=== PATIENT | female | born 1965 ===

== ENCOUNTER 2017-01-29 10:37 | Emergency (ER) | payer MEDICAID, OTHER ==
[2017-01-29 10:37] VITALS: BMI 29.2
[2017-01-29 10:47] VITALS: BP 129/88; PULSE 83; RESP 18; TEMP 98.7; O2SAT 95
--- NOTE | 2017-01-29 11:51 | RAD ---
PROCEDURE: Right Thumb radiographs. HISTORY: pain and swelling COMPARISON: None. TECHNIQUE: AP radiograph of the right hand, as well as spot oblique and lateral images of thumb were obtained. FINDINGS: RIGHT THUMB: Normal right thumb, without fracture or focal lesion. Remainder of the right hand (as seen on the AP view) grossly unremarkable. JOINTS: Normal. SOFT TISSUES: Normal. OTHER FINDINGS: None. IMPRESSION: Normal right thumb radiographs.
--- NOTE | 2017-01-29 11:57 | C.PDOC ---
History Of Present Illness 51 y/o female presents to the ED with complaints of right thumb pain x2 days. Pt noticed redness and swelling yesterday, worse today. Pain is throbbing. Pt denies injury, fever, weakness, numbness or any other complaints. Pt reports history of arthritis, but never been told has gout. Time Seen by Provider: 01/29/17 11:06 Chief Complaint (Nursing): Upper Extremity Problem/Injury History Per: Patient History/Exam Limitations: no limitations Onset/Duration Of Symptoms: Days Current Symptoms Are (Timing): Worse Quality: Other (throbbing) Severity: Moderate Recent travel outside of the [place]: No Past Medical History Reviewed: Historical Data, Nursing Documentation, Vital Signs Vital Signs: Last Vital Signs Temp 98.7 F 01/29/17 10:46 Pulse 83 01/29/17 10:46 Resp 18 01/29/17 10:46 BP 129/88 01/29/17 10:46 Pulse Ox 95 01/29/17 12:08 - Medical History PMH: Asthma Family History: States: Unknown Family Hx - Social History Hx Tobacco Use: No Hx Alcohol Use: No Hx Substance Use: No - Immunization History Hx Tetanus Toxoid Vaccination: Yes (2015) Hx Influenza Vaccination: Yes (2016) Hx Pneumococcal Vaccination: No Review Of Systems Constitutional: Negative for: Fever, Chills Musculoskeletal: Positive for: Other (right thumb pain, redness and swelling) Neurological: Negative for: Weakness, Numbness Physical Exam - Physical Exam Appears: Non-toxic, No Acute Distress Skin: Warm, Dry Head: Atraumatic, Normacephalic Eye(s): bilateral: Normal Inspection Neck: Normal ROM Chest: Symmetrical Extremity: Normal ROM, Capillary Refill (<2 seconds), No Deformity, Other ( swelling, tenderness, erythema and tactile warmth to right 1st digit) Pulses: Right Radial: Normal Neurological/Psych: Oriented x3, Normal Speech, Normal Motor, Normal Sensation Gait: Steady ED Course And Treatment O2 Sat by Pulse Oximetry: 95 (room air) Pulse Ox Interpretation: Normal Medical Decision Making Medical Decision Making: Impression: Right thumb with erythema, swelling, tactile warmth. Thumb is tender to touch, skin intact. Based on history and exam, clinically appears to be gout, will order Xray to rule out fracture Plan: * toradol * prednisone * XR right hand Progress: XRay reviewed showing normal thumb. Upon reevaluation, patient reports pain is improving. Patient advised to take NSAID and follow up with PCP. Instruct on dietary restrictions for uric acid Disposition Counseled Patient/Family Regarding: Diagnosis, Need For Followup, Rx Given - Disposition Referrals: Christian Brown MD [Staff Provider] - Disposition: HOME/ ROUTINE Disposition Time: 12:03 Condition: STABLE Additional Instructions: George diagnstico de hoy es Gout Chrisney Prednisone diariamente para la inflamacin Chrisney Advil, Aleve o Ibuprofen para el dolor cada 8 horas Siga con george mdico para idris evaluacin ms detallada Prescriptions: predniSONE [predniSONE Tab] 2 tab PO DAILY #10 tab Instructions: Gout (ED) Print Language: TRISTANIAN - POA Present On Arrival: None - Clinical Impression Clinical Impression: Gout - PA / SAMPLER FIRST / Resident Statement MD/DO has reviewed & agrees with the documentation as recorded. - Scribe Statement The provider has reviewed the documentation as recorded by the Jose Walsh All medical record entries made by the Jose were at my direction and personally dictated by me. I have reviewed the chart and agree that the record accurately reflects my personal performance of the history, physical exam, medical decision making, and the department course for this patient. I have also personally directed, reviewed, and agree with the discharge instructions and disposition.
== END 2017-01-29 12:28 | disposition home or self-care (01) ==
LOC: C.ER 10:37
DX: M10.9 Gout, unspecified (principal)
CPT/HCPCS: 73140; 96372; 99284; J1885

== ENCOUNTER 2017-02-04 01:59 | Emergency (ER) | payer MEDICAID ==
[2017-02-04 01:59] VITALS: BMI 29.2
--- NOTE | 2017-02-04 02:22 | C.PDOC ---
History Of Present Illness Patient presents to the ER with a complaint of a sharp, stabbing left flank pain radiating to the left leg that began approximately at 21:00. Patient states she took prednisone at home but vomited afterwards. Patient appears; denies fever, chills, dysuria, or hematuria. Time Seen by Provider: 02/04/17 02:21 Chief Complaint (Nursing): Lower Extremity Problem/Injury History Per: Patient History/Exam Limitations: no limitations Onset/Duration Of Symptoms: Hrs Current Symptoms Are (Timing): Still Present Severity: Moderate Pain Scale Rating Of: 4 Recent travel outside of the [place] States: No Past Medical History Reviewed: Historical Data, Nursing Documentation, Vital Signs Vital Signs: Last Vital Signs Temp 98.9 F 02/04/17 02:13 Pulse 88 02/04/17 02:13 Resp 18 02/04/17 02:13 BP 145/83 02/04/17 02:13 Pulse Ox 99 02/04/17 02:56 - Medical History PMH: Asthma Surgical History: No Surg Hx Family History: States: No Known Family Hx - Social History Hx Tobacco Use: No Hx Alcohol Use: No Hx Substance Use: No - Immunization History Hx Tetanus Toxoid Vaccination: Yes Hx Influenza Vaccination: Yes Hx Pneumococcal Vaccination: No Review Of Systems Constitutional: Negative for: Fever, Chills Genitourinary: Negative for: Dysuria, Hematuria Musculoskeletal: Positive for: Leg Pain (Radiating from left flank), Other ( Left Flank Pain) Psych: Positive for: Anxiety Physical Exam - Physical Exam Appears: Non-toxic Skin: Warm, Dry Head: Normacephalic Eye(s): bilateral: Normal Inspection Oral Mucosa: Moist Neck: Supple Chest: Symmetrical, No Tenderness Cardiovascular: Rhythm Regular, No Murmur Respiratory: No Rales, No Rhonchi, No Wheezing Gastrointestinal/Abdominal: Soft, Tenderness (LLQ), No Distention, No Guarding, No Rebound Back: Normal Inspection, No CVA Tenderness, Muscle Spasm Extremity: Normal ROM (x4), No Tenderness Extremity: Bilateral: Atraumatic, Normal Color And Temperature, Normal ROM Pulses: Left Femoral: Normal, Right Femoral: Normal, Left Dorsalis Pedis: Normal , Right Dorsalis Pedis: Normal Neurological/Psych: Oriented x3 Gait: Steady ED Course And Treatment - Laboratory Results Result Diagrams: 02/04/17 02:37 02/04/17 02:37 O2 Sat by Pulse Oximetry: 99 (Room air) Pulse Ox Interpretation: Normal Progress Note: Blood work and urinalysis ordered. Pepcid, toradol, morphine, zofran, and IV fluids administered. Reevaluation Time: 04:52 Reassessment Condition: Improved Medical Decision Making Medical Decision Making: Upon provider reevaluation patient is feeling better, is medically stable, and requires no further treatment in the ED at this time. Patient will be discharged home with Rx for tramadol and zofran . Counseling was provided and all questions were answered regarding diagnosis and need for follow up with dr brown. There is agreement to discharge plan. Return if symptoms persist or worsen. Disposition Counseled Patient/Family Regarding: Studies Performed, Diagnosis, Need For Followup, Rx Given - Disposition Referrals: Christian Brown MD [Staff Provider] - Disposition: HOME/ ROUTINE Disposition Time: 02:21 Condition: FAIR Additional Instructions: Please return if symptoms recur Prescriptions: Ondansetron ODT [Zofran ODT] 1 odt PO BID PRN #12 odt PRN Reason: Nausea/Vomiting traMADol [Ultram] 50 mg PO TID PRN #15 tab PRN Reason: Pain, Severe (8-10) Instructions: Abdominal Pain (ED), Leg Pain (ED) Print Language: SLOVAK - Clinical Impression Clinical Impression: Abdominal pain, Leg pain - Scribe Statement The provider has reviewed the documentation as recorded by the Scribsvetlana Jimenez All medical record entries made by the Scribe were at my direction and personally dictated by me. I have reviewed the chart and agree that the record accurately reflects my personal performance of the history, physical exam, medical decision making, and the department course for this patient. I have also personally directed, reviewed, and agree with the discharge instructions and disposition.
[2017-02-04] MEDS ORDERED: Sodium Chloride 0.9% 1,000 ML IV ONE (02:24)
[2017-02-04] MEDS ORDERED: Sodium Chloride 0.9% 1,000 ML ONE (02:37)
[2017-02-04 02:38] LABS: BASO % 0.3 % (0.0-2.0); EOS % 0.2 % (0.0-4.0); HEMOGLOBIN 12.3 g/dL (11.0-16.0); LYMPH # 1.6 K/uL (1.0-4.3); LYMPH % 11.7 % (20.0-40.0); MEAN CELL VOLUME 75.8 fL (81.0-99.0); MEAN CORPUSCULAR HEMOGLOBIN 25.5 pg (27.0-31.0); MEAN CORPUSCULAR HGB CONC 33.7 g/dL (33.0-37.0); MEAN PLATELET VOLUME 8.6 fL (7.2-11.7); MONO # 0.6 K/uL (0.0-0.8); MONO % 4.3 % (0.0-10.0); NEUT # 11.6 K/uL (1.8-7.0); NEUT % 83.5 % (50.0-75.0); RBC 4.84 Mil/uL (3.80-5.20); RED CELL DISTRIBUTION WIDTH 15.8 % (11.5-14.5); WHITE BLOOD COUNT 13.9 K/uL (4.8-10.8)
[2017-02-04 02:52] LABS: PROTHROMBIN TIME 11.4 SECONDS (9.7-12.2)
[2017-02-04 03:04] LABS: GFR AFRICAN-AMERICAN > 60; GFR NON-AFRICAN AMERICAN > 60
[2017-02-04 03:05] LABS: ALB/GLOB RATIO 1.3 (1.0-2.1); ALT/SGPT 28 U/L (9-52); AST/SGOT 15 U/L (14-36); BLOOD UREA NITROGEN 20 mg/dL (7-17); CALCIUM 8.9 mg/dl (8.6-10.4); LIPASE 24 U/L (23-300)
[2017-02-04] MEDS ORDERED: HYDROmorphone 1 mg/ml ISec IVP STA (03:58)
[2017-02-04] MEDS ORDERED: HYDROmorphone 1 mg/ml ISec ONE (04:18)
--- NOTE | 2017-02-04 04:22 | CT ---
EXAM: CT Abdomen and Pelvis Without Intravenous Contrast CLINICAL HISTORY: 51 years old, female; Pain; Abdominal pain; Flank; Left; Prior surgery; Surgery date: 6+ months; Surgery type: ; Additional info: Left flank pain TECHNIQUE: Axial computed tomography images of the abdomen and pelvis without intravenous contrast. This CT exam was performed using one or more of the following dose reduction techniques: automated exposure control, adjustment of the mA and/or kV according to patient size, and/or use of iterative reconstruction technique. Coronal and sagittal reformatted images were created and reviewed. EXAM DATE/TIME: 02/04/2017 3:12 AM COMPARISON: No relevant prior studies available. FINDINGS: There is a rounded 2.5 cm area of low attenuation in the right hepatic lobe on image 35 series 3 incompletely characterized on noncontrast study. Further evaluation with ultrasound or CT with contrast is recommended (could be done nonemergent basis). The gallbladder, spleen, and pancreas appear grossly normal on this non-contrast study. No perinephric stranding. No hydronephrosis. No obstructing calculi. Scattered colonic diverticuli are noted. A normal appendix is identified coronal images 39 through 46. Hyperdensity along uterine fundus that could be either calcification versus clip. IMPRESSION: No acute findings. Low-attenuation right hepatic lesion for which followup is recommended.
[2017-02-04 05:07] VITALS: BP 150/84; PULSE 66; RESP 16; TEMP 98.2; O2SAT 98
== END 2017-02-04 05:32 | disposition home or self-care (01) ==
LOC: C.ER 01:59
DX: R10.32 Left lower quadrant pain (principal); M79.605 Pain in left leg
CPT/HCPCS: 74176; 80053; 83690; 85025; 85610; 85730; 96361; 96374; 96375; 99285; J1170; J1885; J2270; J2405; J7040

== ENCOUNTER 2018-07-02 12:20 | Emergency (ER) | payer MEDICAID ==
[2018-07-02 12:21] VITALS: BMI 27.4
[2018-07-02 12:33] VITALS: TEMP 98
--- NOTE | 2018-07-02 13:18 | C.PDOC ---
History Of Present Illness 52 year old female with a history of lupus, rheumatoid arthritis, and unknown "headaches" presents to the ED for frontal headache associated with nausea and dizziness for 3-4 days. The patient describes the headache as throbbing and notes the pain radiates to the back of the neck. She states she does not typically experience dizziness with her headaches. Denies fever, chills, cough, nausea, vomiting, vision changes, numbness, weakness, and any other associated symptoms. Time Seen by Provider: 07/02/18 12:42 Chief Complaint (Nursing): Dizziness/Lightheaded History Per: Patient History/Exam Limitations: no limitations Onset/Duration Of Symptoms: Days Current Symptoms Are (Timing): Still Present Recent travel outside of the [place]: No Past Medical History Reviewed: Historical Data, Nursing Documentation, Vital Signs Vital Signs: Last Vital Signs Temp 98 F 07/02/18 12:29 Pulse 70 07/02/18 12:29 Resp 18 07/02/18 12:29 BP 122/84 07/02/18 12:29 Pulse Ox 100 07/02/18 12:29 - Medical History PMH: Arthritis, Asthma, Hypercholesterolemia, Rheumatoid Arthritis Denies: Chronic Kidney Disease Family History: States: Unknown Family Hx, CAD (Brother) - Social History Hx Tobacco Use: No Hx Alcohol Use: No Hx Substance Use: No - Immunization History Hx Tetanus Toxoid Vaccination: No Hx Influenza Vaccination: No Hx Pneumococcal Vaccination: No Review Of Systems Constitutional: Negative for: Fever, Chills Respiratory: Negative for: Cough Gastrointestinal: Positive for: Nausea. Negative for: Vomiting Neurological: Positive for: Headache (frontal.), Dizziness. Negative for: Weakness, Numbness Physical Exam - Physical Exam Appears: Non-toxic, No Acute Distress, Chronically Ill Skin: Warm, Dry, No Rash Head: Atraumatic, Normacephalic Eye(s): bilateral: Normal Inspection Ear(s): Bilateral: Normal Oral Mucosa: Moist Throat: No Erythema, No Exudate Neck: Normal ROM, Supple Chest: Symmetrical, No Deformity Cardiovascular: Rhythm Regular, No Friction Rub, No Murmur Respiratory: Normal Breath Sounds, No Rales, No Rhonchi, No Wheezing Gastrointestinal/Abdominal: Normal Exam, Soft, No Tenderness Back: Normal Inspection, No CVA Tenderness Extremity: Normal ROM (x4), No Swelling Neurological/Psych: Oriented x3, Normal Speech, Normal Cognition, Normal Motor, Normal Sensation, Normal Reflexes Gait: Steady ED Course And Treatment - Laboratory Results Result Diagrams: 07/02/18 14:58 07/02/18 14:58 O2 Sat by Pulse Oximetry: 100 (RA) Pulse Ox Interpretation: Normal - CT Scan/US CT Head Other Rad Studies (CT/US): Read By Radiologist CT/US Interpretation: FINDINGS: HEMORRHAGE: No intracranial hemorrhage. BRAIN: No mass effect or edema. The castellon-white matter differentiation appears intact. Please note that MRI with diffusion imaging is more sensitive in the detection of acute ischemic event. VENTRICLES: No hydrocephalus. CALVARIUM: Unremarkable. PARANASAL SINUSES: Unremarkable as visualized. No significant inflammatory changes. MASTOID AIR CELLS: Unremarkable as visualized. No inflammatory changes. OTHER FINDINGS: None. IMPRESSION: No acute intracranial pathology identified. Medical Decision Making Medical Decision Making: Plan: --CT Head w/o contrast. --Blood sent. --HCG Urine. --Urinalysis. --Benadryl. --Reglan. On re-exam, the patient report improvement of symptoms. Lungs are CTA, heart is RRR, abdomen is soft, non-tender and tolerating PO well. Ambulatory in the ED with steady gait. Follow up with the medical doctor within 1-2 days. Return if worsened. Disposition - Disposition Referrals: Christian Brown MD [Staff Provider] - Disposition: HOME/ ROUTINE Disposition Time: 16:26 Condition: STABLE Additional Instructions: Follow up with the medical doctor within 1-2 days. Return if worsened. Prescriptions: Meclizine HCl 25 mg PO TID PRN #25 tablet PRN Reason: Dizziness Instructions: Vertigo (a Type of Dizziness) (DC) Forms: [employer] (Telugu) Print Language: ANGUILLAN - Clinical Impression Clinical Impression: Vertigo - PA / HUMAN RELATIONS TEACHER / Resident Statement MD/DO has reviewed & agrees with the documentation as recorded. - Scribe Statement The provider has reviewed the documentation as recorded by the Scribe (Keysha Benavides) All medical record entries made by the Scribe were at my direction and personally dictated by me. I have reviewed the chart and agree that the record accurately reflects my personal performance of the history, physical exam, medi celia decision making, and the department course for this patient. I have also personally directed, reviewed, and agree with the discharge instructions and disposition.
[2018-07-02] MEDS ORDERED: DiphenhydrAMINE 50 mg/ml Inj IVP STA (13:28)
[2018-07-02] MEDS ORDERED: Sodium Chloride 0.9% 500 ML IV ONE (13:29)
[2018-07-02] MEDS ORDERED: DiphenhydrAMINE 50 mg/ml Inj ONE (14:43)
[2018-07-02] MEDS ORDERED: Sodium Chloride 0.9% 1,000 ML ONE (14:43)
--- NOTE | 2018-07-02 14:55 | CT ---
Date of service: 07/02/2018 PROCEDURE: CT HEAD WITHOUT CONTRAST. HISTORY: headache, dizziness, r/o bleed COMPARISON: None available TECHNIQUE: Axial computed tomography images were obtained through the head/brain without intravenous contrast. Radiation dose: Total exam DLP = 897.49 mGy-cm. This CT exam was performed using one or more of the following dose reduction techniques: Automated exposure control, adjustment of the mA and/or kV according to patient size, and/or use of iterative reconstruction technique. FINDINGS: HEMORRHAGE: No intracranial hemorrhage. BRAIN: No mass effect or edema. The castellon-white matter differentiation appears intact. Please note that MRI with diffusion imaging is more sensitive in the detection of acute ischemic event. VENTRICLES: No hydrocephalus. CALVARIUM: Unremarkable. PARANASAL SINUSES: Unremarkable as visualized. No significant inflammatory changes. MASTOID AIR CELLS: Unremarkable as visualized. No inflammatory changes. OTHER FINDINGS: None. IMPRESSION: No acute intracranial pathology identified.
[2018-07-02 15:03] LABS: HCG,QUALITATIVE URINE NEGATIVE (NEGATIVE)
[2018-07-02 15:05] LABS: BASO # 0.1 K/uL (0.0-0.2); BASO % 1.8 % (0.0-2.0); EOS # 0.2 K/uL (0.0-0.7); EOS % 2.8 % (0.0-4.0); LYMPH # 1.8 K/uL (1.0-4.3); LYMPH % 31.8 % (20.0-40.0); MEAN CORPUSCULAR HEMOGLOBIN 26.1 pg (27.0-31.0); MEAN CORPUSCULAR HGB CONC 33.9 g/dL (33.0-37.0); MEAN PLATELET VOLUME 8.4 fL (7.2-11.7); MONO # 0.3 K/uL (0.0-0.8); NEUT # 3.3 K/uL (1.8-7.0); NEUT % 58.6 % (50.0-75.0); RBC 4.6 Mil/uL (3.80-5.20); RED CELL DISTRIBUTION WIDTH 16.7 % (11.5-14.5); WHITE BLOOD COUNT 5.6 K/uL (4.8-10.8)
[2018-07-02 15:05] LABS: SQUAMOUS EPITHIAL < 1 /hpf (0-5); URINE BILIRUBIN NEGATIVE (NEGATIVE); URINE BLOOD NEGATIVE (NEGATIVE); URINE CLARITY Clear (Clear); URINE COLOR Yellow (YELLOW); URINE GLUCOSE (UA) NORMAL (Normal); URINE LEUKOCYTE ESTERASE NEG Leu/uL (Negative); URINE PROTEIN NEGATIVE (NEGATIVE); URINE UROBILINOGEN NORMAL mg/dL (0.2-1.0)
[2018-07-02 15:18] LABS: ALB/GLOB RATIO 1.5 (1.0-2.1); ALBUMIN 4.2 g/dL (3.5-5.0); ALT/SGPT 24 U/L (9-52); AST/SGOT 20 U/L (14-36); BLOOD UREA NITROGEN 13 mg/dL (7-17); GFR NON-AFRICAN AMERICAN > 60
[2018-07-02 16:50] VITALS: BP 111/71; PULSE 77; RESP 20; O2SAT 98
== END 2018-07-02 17:08 | disposition home or self-care (01) ==
LOC: C.ER 12:20
DX: R42 Dizziness and giddiness (principal); J45.909 Unspecified asthma, uncomplicated; E78.00 Pure hypercholesterolemia, unspecified; M06.9 Rheumatoid arthritis, unspecified; M32.9 Systemic lupus erythematosus, unspecified
CPT/HCPCS: 70450; 80053; 81001; 84703; 85025; 96361; 96365; 96375; 99285; J1200; J2765; J7040

== ENCOUNTER 2018-11-04 16:06 | Emergency (ER) | payer MEDICAID ==
[2018-11-04 16:06] VITALS: BMI 27.4
[2018-11-04] MEDS ORDERED: Sodium Chloride 0.9% 500 ML IV STA (17:04)
[2018-11-04 17:37] LABS: BASO # 0.1 K/uL (0.0-0.2); BASO % 0.9 % (0.0-2.0); EOS # 0.2 K/uL (0.0-0.7); EOS % 3.3 % (0.0-4.0); HEMOGLOBIN 12.3 g/dL (11.0-16.0); LYMPH # 1.8 K/uL (1.0-4.3); LYMPH % 24.4 % (20.0-40.0); MEAN CORPUSCULAR HEMOGLOBIN 26.8 pg (27.0-31.0); MEAN CORPUSCULAR HGB CONC 33.5 g/dL (33.0-37.0); MEAN PLATELET VOLUME 8.3 fL (7.2-11.7); MONO # 0.4 K/uL (0.0-0.8); MONO % 5.7 % (0.0-10.0); NEUT # 4.9 K/uL (1.8-7.0); NEUT % 65.7 % (50.0-75.0); NRBC % 0.1 % (0.0-2.0); RBC 4.61 Mil/uL (3.80-5.20); RED CELL DISTRIBUTION WIDTH 16.5 % (11.5-14.5); WHITE BLOOD COUNT 7.5 K/uL (4.8-10.8)
[2018-11-04 17:41] LABS: MEAN CELL VOLUME 79.8 fL (81.0-99.0)
[2018-11-04 17:50] LABS: INR 1.1; PROTHROMBIN TIME 11.9 SECONDS (9.7-12.2)
[2018-11-04 17:51] LABS: URINE BACTERIA RARE (<OCC); URINE BILIRUBIN NEGATIVE (NEGATIVE); URINE BLOOD NEGATIVE (NEGATIVE); URINE CLARITY Clear (Clear); URINE COLOR Straw (YELLOW); URINE GLUCOSE (UA) NORMAL (Normal); URINE LEUKOCYTE ESTERASE NEG Leu/uL (Negative); URINE PROTEIN NEGATIVE (NEGATIVE); URINE UROBILINOGEN NORMAL mg/dL (0.2-1.0)
--- NOTE | 2018-11-04 17:57 | RAD ---
Date of service: 11/04/2018 HISTORY: pain, cough COMPARISON: 05/03/2016 TECHNIQUE: Chest PA and lateral views FINDINGS: LUNGS: No active pulmonary disease. PLEURA: No significant pleural effusion identified. No pneumothorax apparent. CARDIOVASCULAR: No aortic atherosclerotic calcification present. Normal cardiac size. No pulmonary vascular congestion. OSSEOUS STRUCTURES: No significant abnormalities. VISUALIZED UPPER ABDOMEN: Normal. OTHER FINDINGS: None. IMPRESSION: No active disease. No significant interval change compared to the prior examination(s).
[2018-11-04] MEDS ORDERED: Albuterol-Ipratrop 3 mg / 0.5 (3 ml) UD IH STA (18:09)
[2018-11-04] MEDS ORDERED: Albuterol 0.083% Inhal Sol (2.5 mg/3 mL) UD INH STA (18:09)
[2018-11-04] MEDS ORDERED: Albuterol-Ipratrop 3 mg / 0.5 (3 ml) UD ONE (18:13)
[2018-11-04] MEDS ORDERED: Albuterol 0.083% Inhal Sol (2.5 mg/3 mL) UD ONE (18:22)
[2018-11-04 19:10] LABS: ALB/GLOB RATIO 1.6 (1.0-2.1); ALBUMIN 4.4 g/dL (3.5-5.0); ALT/SGPT 9 U/L (9-52); AST/SGOT 34 U/L (14-36); BLOOD UREA NITROGEN 15 mg/dL (7-17); GFR NON-AFRICAN AMERICAN > 60
[2018-11-04 19:30] LABS: CK-MB < 0.22 ng/mL (0.0-3.38)
--- NOTE | 2018-11-04 19:56 | C.PDOC ---
History Of Present Illness 53 year old female presents to ED with complaint of productive cough with yellow sputum for the past 2 days. Patient states that she also lost her voice, has generalized body aches, and a headache. Patient also complains of left sided chest pain that radiates to her left scapula. Patient denies that the pain is related to her cough and deep breathes. Patient denies SOB, palpitations, fever, runny nose, sore throat, and nasal congestion. <Anna Roy - Last Filed: 11/04/18 23:08> History Per: Patient History/Exam Limitations: no limitations Onset/Duration Of Symptoms: Days (2) Current Symptoms Are (Timing): Still Present Location Of Pain: Diffuse Myalgias, Headache Associated Symptoms: Cough, Sputum. denies: Fever, Chills, Sore Throat, Sinus Drainage, Nasal Congestion <Anna Roy - Last Filed: 11/04/18 23:08> <Devi Santoro - Last Filed: 11/05/18 01:45> Time Seen by Provider: 11/04/18 16:53 Chief Complaint (Nursing): Cough, Cold, Congestion Past Medical History Reviewed: Historical Data, Nursing Documentation, Vital Signs Vital Signs: Last Vital Signs Temp 98.1 F 11/04/18 16:45 Pulse 84 11/04/18 16:45 Resp 14 11/04/18 16:45 BP 133/86 11/04/18 16:45 Pulse Ox 100 11/04/18 16:45 - Medical History PMH: Arthritis, Asthma, Hypercholesterolemia, Rheumatoid Arthritis Denies: Chronic Kidney Disease Surgical History: No Surg Hx Family History: States: Unknown Family Hx, CAD (Brother) - Social History Hx Tobacco Use: No Hx Alcohol Use: No Hx Substance Use: No - Immunization History Hx Tetanus Toxoid Vaccination: No Hx Influenza Vaccination: No Hx Pneumococcal Vaccination: No <Anna Roy - Last Filed: 11/04/18 23:08> Vital Signs: Last Vital Signs Temp 98.3 F 11/04/18 21:33 Pulse 85 11/04/18 21:33 Resp 18 11/04/18 21:33 BP 116/75 11/04/18 21:33 Pulse Ox 100 11/04/18 23:14 <Devi Santoro - Last Filed: 11/05/18 01:45> Review Of Systems Constitutional: Positive for: Weakness. Negative for: Fever, Chills ENT: Negative for: Nose Discharge, Nose Congestion, Throat Pain Cardiovascular: Positive for: Chest Pain (left sided pain that radiates into the left scapula). Negative for: Palpitations Respiratory: Positive for: Cough, Sputum (yellow in nature). Negative for: Shortness of Breath Neurological: Positive for: Headache. Negative for: Weakness, Numbness, Dizziness <Anna Roy - Last Filed: 11/04/18 23:08> Physical Exam - Physical Exam Appears: Well, Non-toxic, No Acute Distress Skin: Normal Color, Warm, Dry Head: Atraumatic, Normacephalic Throat: Normal, No Erythema, No Exudate Neck: Normal ROM, Supple Chest: Symmetrical, No Deformity, No Tenderness Cardiovascular: Rhythm Regular, No Murmur Respiratory: No Accessory Muscle Use, No Rales, No Rhonchi, No Wheezing Gastrointestinal/Abdominal: Soft, No Tenderness Extremity: Capillary Refill (<2 seconds) Neurological/Psych: Oriented x3, Normal Speech, Normal Cognition <Anna Roy - Last Filed: 11/04/18 23:08> ED Course And Treatment - Laboratory Results Result Diagrams: 11/04/18 17:33 11/04/18 17:33 Lab Results: PT 11.9 SECONDS (9.7-12.2) 11/04/18 17:33 INR 1.1 11/04/18 17:33 APTT 36 SECONDS (21-34) H 11/04/18 17:33 Troponin I < 0.0120 ng/mL (0.00-0.120) 11/04/18 17:33 Total Bilirubin 0.5 mg/dL (0.2-1.3) 11/04/18 17:33 AST 34 U/L (14-36) 11/04/18 17:33 ALT 9 U/L (9-52) D 11/04/18 17:33 Alkaline Phosphatase 75 U/L (38-126) 11/04/18 17:33 Total Protein 7.2 g/dL (6.3-8.3) 11/04/18 17:33 Albumin 4.4 g/dL (3.5-5.0) 11/04/18 17:33 Globulin 2.8 gm/dL (2.2-3.9) 11/04/18 17:33 Albumin/Globulin Ratio 1.6 (1.0-2.1) 11/04/18 17:33 Urine Color Straw (YELLOW) 11/04/18 17:33 Urine Clarity Clear (Clear) 11/04/18 17:33 Urine pH 5.0 (5.0-8.0) 11/04/18 17:33 Ur Specific Hillman 1.009 (1.003-1.030) 11/04/18 17:33 Urine Protein Negative mg/dL (NEGATIVE) 11/04/18 17:33 Urine Glucose (UA) Normal mg/dL (Normal) 11/04/18 17:33 Urine Ketones Negative mg/dL (NEGATIVE) 11/04/18 17:33 Urine Blood Negative (NEGATIVE) 11/04/18 17:33 Urine Nitrate Negative (NEGATIVE) 11/04/18 17:33 Urine Bilirubin Negative (NEGATIVE) 11/04/18 17:33 Urine Urobilinogen Normal mg/dL (0.2-1.0) 11/04/18 17:33 Ur Leukocyte Esterase Neg [place]/uL (Negative) 11/04/18 17:33 Urine WBC (Auto) 1 /hpf (0-5) 11/04/18 17:33 Urine RBC (Auto) < 1 /hpf (0-3) 11/04/18 17:33 Urine Bacteria Rare (<OCC) 11/04/18 17:33 O2 Sat by Pulse Oximetry: 100 (in RA) - Other Rad CXR X-Ray: Interpreted by Me, Viewed By Me Interpretation: Accession No. : [id number]. Patient Name / ID : BRODIE PILLAI / [id number]. Exam Date : 11/04/2018 17:10:51 ( Approved ). Study Comment : Sex / Age : F / 53Y. Creator : Malvin Jensen MD. Dictator : Malvin Jensen MD. Processing Manager : Visual Merchandiser : Malvin Jensen MD. Approver2 : Report Date : 11/04/2018 17:53:32. My Comment : . Date of service: 11/04/2018. HISTORY: pain, cough. COMPARISON: 05/03/2016. TECHNIQUE: Chest PA and lateral views. FINDINGS: LUNGS: No active pulmonary disease. PLEURA: No significant pleural effusion identified. No pneumothorax apparent. CARDIOVASCULAR: No aortic atherosclerotic calcification present. Normal cardiac size. No pulmonary vascular congestion. OSSEOUS STRUCTURES: No significant abnormalities. VISUALIZED UPPER ABDOMEN: Normal. OTHER FINDINGS: None. IMPRESSION: No active disease. No significant interval change compared to the prior examination(s). Progress Note: Labs ordered with cardiac enzymes. CTA chest, CXR, and EKG ordered for patient. Patient given Albuterol INH, solu-medrol, and IV fluids. Case was d/c Hospitalist who sts hospitalization and observation is not erlin cated and symptoms are most likely due to constant cough and URI. The second troponin ordered and negative, CTA chest ordered. - Physician Consult Information Time Consulting Physician Contacted: 19:15 Physician Contacted: Sreekanth Osorio Outcome Of Conversation: Doesn't want to accept patient for observation, stating CP most likely is due to URI and constant cough. <Anna Roy - Last Filed: 11/04/18 23:08> - Laboratory Results Result Diagrams: 11/04/18 17:33 11/04/18 17:33 Lab Results: PT 11.9 SECONDS (9.7-12.2) 11/04/18 17:33 INR 1.1 11/04/18 17:33 APTT 36 SECONDS (21-34) H 11/04/18 17:33 Troponin I < 0.0120 ng/mL (0.00-0.120) 11/04/18 22:01 Total Bilirubin 0.5 mg/dL (0.2-1.3) 11/04/18 17:33 AST 34 U/L (14-36) 11/04/18 17:33 ALT 9 U/L (9-52) D 11/04/18 17:33 Alkaline Phosphatase 75 U/L (38-126) 11/04/18 17:33 Total Protein 7.2 g/dL (6.3-8.3) 11/04/18 17:33 Albumin 4.4 g/dL (3.5-5.0) 11/04/18 17:33 Globulin 2.8 gm/dL (2.2-3.9) 11/04/18 17:33 Albumin/Globulin Ratio 1.6 (1.0-2.1) 11/04/18 17:33 Urine Color Straw (YELLOW) 11/04/18 17:33 Urine Clarity Clear (Clear) 11/04/18 17:33 Urine pH 5.0 (5.0-8.0) 11/04/18 17:33 Ur Specific Hillman 1.009 (1.003-1.030) 11/04/18 17:33 Urine Protein Negative mg/dL (NEGATIVE) 11/04/18 17:33 Urine Glucose (UA) Normal mg/dL (Normal) 11/04/18 17:33 Urine Ketones Negative mg/dL (NEGATIVE) 11/04/18 17:33 Urine Blood Negative (NEGATIVE) 11/04/18 17:33 Urine Nitrate Negative (NEGATIVE) 11/04/18 17:33 Urine Bilirubin Negative (NEGATIVE) 11/04/18 17:33 Urine Urobilinogen Normal mg/dL (0.2-1.0) 11/04/18 17:33 Ur Leukocyte Esterase Neg [place]ira/uL (Negative) 11/04/18 17:33 Urine WBC (Auto) 1 /hpf (0-5) 11/04/18 17:33 Urine RBC (Auto) < 1 /hpf (0-3) 11/04/18 17:33 Urine Bacteria Rare (<OCC) 11/04/18 17:33 - CT Scan/US CTA Other Rad Studies (CT/US): Read By Radiologist, Radiology Report Reviewed CT/US Interpretation: CTA OF THE CHEST WITH IV CONTRAST. CLINICAL HISTORY: Chest pain. TECHNIQUE: Axial and reformatted sagittal and coronal images of the chest obtained after bolus IV contrast administration. FINDINGS: Normal enhancement of the main pulmonary artery and right and left pulmonary arteries. Normal enhancement of the bilateral peripheral pulmonary arteries. There is no demonstrated pulmonary embolism. Normal thoracic aorta and visualized great vessels. There is no demonstrated aortic dissection. Normal heart and pericardium. Normal mediastinum. Normal hilar regions. Normal visualized trachea and bronchi. The lungs are well expanded. Normal pulmonary parenchyma. Normal pleura. Normal chest wall structures. Normal osseous structures. Normal visualized upper abdomen. IMPRESSION: Normal CTA chest examination, without a demonstrated pulmonary embolism or arterial dissection. <Devi Santoro - Last Filed: 11/05/18 01:45> Medical Decision Making Medical Decision Making: Patient signed out to me at shift change pending CTA. Study complete, results as follows- IMPRESSION: Normal CTA chest examination, without a demonstrated pulmonary embolism or arterial dissection. Result discussed with patient. Discharged with Rx for zpack and inhaler for acute bronchitis. <Devi Santoro - Last Filed: 11/05/18 01:45> Disposition - Disposition Disposition Time: 23:09 <Anna Roy - Last Filed: 11/04/18 23:08> <Devi Santoro - Last Filed: 11/05/18 01:45> - Disposition Disposition: HOME/ ROUTINE Condition: STABLE Additional Instructions: ROSAS CALLOWAY, thank you for letting us take care of you today. Your provider was Devi Santoro MD and you were treated for COLD/THROAT PAIN. The emergency medical care you received today was directed at your acute symptoms. If you were prescribed any medication, please fill it and take as directed. It may take several days for your symptoms to resolve. Return to the Emergency Department if your symptoms worsen, do not improve, or if you have any other problems. Please contact your doctor or call one of the physicians/clinics you have been referred to that are listed on the Patient Visit Information form that is included in your discharge packet. Bring any paperwork you were given at discharge with you along with any medications you are taking to your follow up visit. Our treatment cannot replace ongoing medical care by a primary care provider outside of the emergency department. Thank you for allowing the [facility] team to be part of your care today. If you had an X-Ray or CT scan: A Radiologist will review the ED reading if any change in treatment is needed we will contact you. If you had a blood, urine, or wound culture: It will take several days for the results, if any change in treatment is needed we will contact you. If you had an STI test: It will take 48 hours for the results. Please call after 1 week if you have not heard back. Prescriptions: Albuterol HFA [Ventolin HFA 90 mcg/actuation (8 g)] 2 puff IH Q4H PRN #1 inh PRN Reason: Wheezing Azithromycin [Zithromax] 250 mg PO DAILY #6 tab Instructions: Acute Bronchitis, Adult (DC) Forms: [facility] (Bulgarian), Work Excuse - Clinical Impression Clinical Impression: Bronchitis, Laryngitis, Chest pain - PA / ART DISPLAY MAKER / Resident Statement MD/DO has reviewed & agrees with the documentation as recorded. (Heydi Willingham) - Scribe Statement The provider has reviewed the documentation as recorded by the Scribe (Heydi Willingham) All medical record entries made by the Scribe were at my direction and personally dictated by me. I have reviewed the chart and agree that the record accurately reflects my personal performance of the history, physical exam, medical decision making, and the department course for this patient. I have also personally directed, reviewed, and agree with the discharge instructions and disposition. <Anna Roy - Last Filed: 11/04/18 23:08> Physician Patient Turnover Patient Signed Over To: Devi Santoro Handoff Comments: pending Chest CTA, if negative d/c on Z-pack, Prednisone and Ventolin <Anna Roy - Last Filed: 11/04/18 23:08>
[2018-11-04 21:34] VITALS: BP 116/75; PULSE 85; RESP 18; TEMP 98.3
[2018-11-04] MEDS ORDERED: Iodixanol 320 MG/ML 100 ML BOTTLE IV ONE (22:10)
[2018-11-04 23:08] VITALS: O2SAT 100
--- NOTE | 2018-11-05 12:24 | CT ---
Date of service: 11/04/2018 CTA chest PE protocol Indication: chest pain Technique: Contiguous axial images were obtained through the chest with intravenous contrast enhancement. Sagittal and coronal reconstructions were generated and reviewed. This CT exam was performed using 1 or more of the following dose reduction techniques: Automated exposure control, adjustment of the MAA and/or kV according to patient size, and/or use of iterative reconstruction technique. IV contrast: 100 mL Visipaque 320 IV Radiation dose (DLP): 377.9 MGy-cm. Comparison: Chest x-ray performed 11/04/18 Findings: Visualized portions of the inferior thyroid gland appear unremarkable. The mediastinal and hilar vascular structures appear within normal limits. The heart appears within normal limits of size. No large central or segmental pulmonary embolus evident. No focal consolidation. No pleural effusion. No pneumothorax. 3 mm right upper lobe nodule (series 4, image 31). 4 mm right middle lobe nodule (image 50). Limited visualized portions of the upper abdomen: 17 mm hypodensity in the posterior right hepatic lobe (series 3, image 78). No acute osseous abnormality is detected. Impression: No large central or segmental pulmonary embolus evident. No focal consolidation. No pleural effusion. No pneumothorax. 3 mm right upper lobe nodule. 4 mm right middle lobe nodule. According to 2017 Fleischner criteria, if the patient is low risk, no routine follow-up is recommended. If the patient is high risk, an optional CT at 12 months is recommended. 17 mm hypodensity in the posterior right hepatic lobe; abdominal ultrasound and or dedicated cross-sectional imaging may be considered for further characterization. Preliminary impression was provided by [employer]. Study marked for PA review.
== END 2018-11-05 00:48 | disposition home or self-care (01) ==
LOC: C.ER 16:06
DX: J40 Bronchitis, not specified as acute or chronic (principal); J04.0 Acute laryngitis; R07.9 Chest pain, unspecified
CPT/HCPCS: 71046; 71275; 80053; 81001; 82550; 82553; 84484; 85025; 85610; 85730; 94640; 96374; 99284; J2930; J7040; Q9967

== ENCOUNTER 2018-11-19 08:02 | Outpatient (CLI) | payer MEDICAID | END 2018-11-19 08:03 | disposition home or self-care (01) | LOC: C.USIC 08:03 | DX: R93.2 Abnormal findings on diagnostic imaging of liver and biliary tract (principal) ==